=== PATIENT | male | born 1945 | race Caucasian/White ===

== ENCOUNTER 2023-12-10 12:34 | Outpatient (CLI) | payer OTHER, SELFPAY ==
[2023-12-10 13:34] VITALS: BP 100/52; PULSE 77; RESP 16; TEMP 36.1; O2SAT 100; BMI 27.2
[2023-12-10 13:57] VITALS: BP 98/51; PULSE 79; RESP 16; TEMP 35.7; O2SAT 100
[2023-12-10 14:58] VITALS: BP 107/53; PULSE 68; RESP 16; TEMP 35.8; O2SAT 100
== END 2023-12-10 23:59 | disposition home or self-care (01) ==
PROVIDERS: Referring Provider Internal Medicine Hematology & Oncology; Visit Provider Internal Medicine Hematology & Oncology
DX: D64.81 Anemia due to antineoplastic chemotherapy (principal)
CPT/HCPCS: 36430; 86644; 86850; 86900; 86901; 86920; 86922; J7040; P9040; A4216

== ENCOUNTER 2024-01-01 11:32 | Outpatient (CLI) | payer OTHER, SELFPAY ==
[2024-01-01 12:20] VITALS: BP 88/48; PULSE 75; RESP 16; TEMP 36.1; O2SAT 95; BMI 26.6
[2024-01-01 12:56] VITALS: BP 96/46; PULSE 75; RESP 16; TEMP 35.9
[2024-01-01 13:56] VITALS: BP 105/50; PULSE 75; RESP 16; TEMP 36.1; O2SAT 95
[2024-01-01 14:42] VITALS: BP 100/48; PULSE 74; RESP 16; TEMP 36; O2SAT 99
== END 2024-01-01 23:59 | disposition home or self-care (01) ==
LOC: MEDOUTP 11:32
PROVIDERS: Referring Provider Internal Medicine Hematology & Oncology; Visit Provider Internal Medicine Hematology & Oncology
DX: D64.9 Anemia, unspecified (principal)
CPT/HCPCS: 36430; 86850; 86900; 86901; 86920; 86922; J7040; P9016; A4216